=== PATIENT | female | born 1995 | race American Indian/Alaskan Native ===

== ENCOUNTER 2019-08-01 14:06 | Emergency (ER) | payer MEDICAID ==
[~2019-08-01] VITALS: Ht 170.2 cm; Wt 75.0 kg
[2019-08-01] MEDS ORDERED: KETOROLAC 60MG/2ML VIAL IM STA (16:27)
[2019-08-01 16:54] LABS: BASOPHILS % 1.1 % (0.0-2.0); EOSINOPHILS % 2.4 % (0.0-5.0); HEMATOCRIT. 35.9 % (36.0-48.0); HEMOGLOBIN. 12.2 g/dL (12.0-16.0); LYMPHOCYTES % 19.4 % (20.0-50.0); MEAN CORPUSCULAR HEMOGLOBIN 29.8 pg (28.0-32.0); MEAN CORPUSCULAR VOLUME 87.4 fL (81.0-99.0); MEAN PLATELET VOLUME 7.6 fl (7.4-10.4); MONOCYTES % 9.8 % (2.0-8.0); NEUTROPHILS % 67.3 % (40.0-76.0); PLATELET 369 x1000/uL (130-400); RED BLOOD CELL COUNT 4.11 mill/uL (4.2-5.4)
[2019-08-01 17:10] LABS: CHLORIDE 107 mEq/L (98-107)
[2019-08-01 17:46] VITALS: BP 120/80
[2019-08-01 18:06] LABS: CLARITY URINE CLOUDY (CLEAR); COLOR URINE YELLOW (YELLOW); KETONES URINE NEGATIVE (NEGATIVE); LEUKOCYTE ESTERASE URINE 3+ (NEGATIVE); NITRITE URINE NEGATIVE (NEGATIVE); OCCULT BLOOD URINE 1+ (NEGATIVE); PROTEIN URINE 1+ (NEGATIVE); SPECIFIC GRAVITY URINE 1.012 (1.005-1.030)
== END 2019-08-01 18:26 | disposition home or self-care (01) ==
LOC: ER 15:10
DX: N10 Acute pyelonephritis (principal); M54.6 Pain in thoracic spine
CPT/HCPCS: 36415; 80053; 81003; 81025; 85025; 87077; 87086; 87186; 96372; 99283; J1885; Z7610

== ENCOUNTER 2021-03-17 15:03 | Emergency (ER) | payer MEDICAID ==
[~2021-03-17] VITALS: Ht 172.7 cm; Wt 103.0 kg
[2021-03-17 15:54] VITALS: BP 127/64
== END 2021-03-17 17:51 | disposition left against medical advice (07) ==
LOC: ER 15:03
DX: Z53.21 Procedure and treatment not carried out due to patient leaving prior to being seen by health care provider (principal)

== ENCOUNTER 2021-12-12 15:41 | Emergency (ER) | payer MEDICAID, OTHER ==
[~2021-12-12] VITALS: Ht 170.2 cm; Wt 102.0 kg
[2021-12-12 16:50] LABS: CHLORIDE 108 mEq/L (98-107)
[2021-12-12 16:59] LABS: BASOPHILS % 0.2 % (0.0-2.0); EOSINOPHILS % 0.6 % (0.0-5.0); HEMATOCRIT. 41.4 % (36.0-48.0); LYMPHOCYTES % 11.6 % (20.0-50.0); MEAN CORPUSCULAR HEMOGLOBIN 30.6 pg (28.0-32.0); MEAN CORPUSCULAR VOLUME 90.5 fL (81.0-99.0); MEAN PLATELET VOLUME 8.2 fl (7.4-10.4); MONOCYTES % 8.7 % (2.0-8.0); NEUTROPHILS % 78.9 % (40.0-76.0); PLATELET 308 x1000/uL (130-400); RED BLOOD CELL COUNT 4.58 mill/uL (4.2-5.4); RED CELL DISTRIBUTION WIDTH 13.1 % (11.6-14.6)
[2021-12-12 19:55] LABS: HCG SCREEN NEGATIVE
[2021-12-12 20:10] LABS: CLARITY URINE CLOUDY (CLEAR); COLOR URINE YELLOW (YELLOW); KETONES URINE 1+ (NEGATIVE); LEUKOCYTE ESTERASE URINE 3+ (NEGATIVE); NITRITE URINE POSITIVE (NEGATIVE); OCCULT BLOOD URINE 2+ (NEGATIVE); PROTEIN URINE 2+ (NEGATIVE); SPECIFIC GRAVITY URINE 1.017 (1.005-1.030)
[2021-12-12] MEDS ORDERED: LEVOFLOXACIN 250MG TABLET PO STA (20:32)
[2021-12-12] MEDS ORDERED: CIPR-263 MT (20:38)
[2021-12-12 21:31] VITALS: BP 119/63
== END 2021-12-12 21:32 | disposition home or self-care (01) ==
LOC: ER 15:41
DX: N23 Unspecified renal colic (principal)
CPT/HCPCS: 36415; 80053; 81003; 81025; 84703; 85025; 87077; 87186; 99283

== ENCOUNTER 2022-09-02 16:22 | Emergency (ER) | payer MEDICAID, OTHER ==
[~2022-09-02] VITALS: Ht 170.2 cm; Wt 88.0 kg
[~2022-09-02 16:22] MED LIST: CIPR-263 MT
[2022-09-02 16:58] VITALS: BP 118/79
== END 2022-09-02 19:05 | disposition left against medical advice (07) ==
LOC: ER 16:22
DX: Z53.21 Procedure and treatment not carried out due to patient leaving prior to being seen by health care provider (principal)